=== PATIENT | female | born 1965 | race Two or more races ===

== ENCOUNTER 2016-04-30 23:55 | Emergency (ER) | payer OTHER ==
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
[~2016-04-30 23:55] MED LIST: ALBUTEROL17 GM INH; AMOXICILLIN500 M1 PO; BENZONATATE PO; CIPRO250 MG PO; DELTASONE20 MG PO; HYDROCODON-ACE1 EAC9 PO; LEVAQUIN750 MG PO; LORTAB 10-5001 EACH PO; NO MEDICATIONS; VOLTAREN75 MG PO; ZITHROMAX1 G/PKT PO
== END 2016-05-01 03:13 | disposition home or self-care (01) ==
LOC: CED 23:55
DX: S13.4XXA Sprain of ligaments of cervical spine, initial encounter (principal); S33.5XXA Sprain of ligaments of lumbar spine, initial encounter; S46.911A Strain of unspecified muscle, fascia and tendon at shoulder and upper arm level, right arm, initial encounter; Z88.0 Allergy status to penicillin; V49.50XA Passenger injured in collision with unspecified motor vehicles in traffic accident, initial encounter; Y93.89 Activity, other specified; Y92.410 Unspecified street and highway as the place of occurrence of the external cause
CPT/HCPCS: 71020; 72040; 72100; 99284